=== PATIENT | female | born 1950 | race African-American/Black ===

== ENCOUNTER → 2016-12-20 | Outpatient (CLI) | payer OTHER ==
--- NOTE | ~2016-12-20 | CR181 ---
[facility] A Service of [facility] & [facility] / [facility] RADIOLOGY TEXT RESULTS PATIENT: GEOFF LINDA LOCATION: [facility] : 52 UNIT #: [id number] AGE: [address]: Mary Mas APRN SEX: F ORDER DR: [id number] [facility] [address] [place], [place] [address] [id number] O MR#: [id number] Acc #: [id number] NAME: GEOFF LINDA : 1950 SEX: F STUDY DATE/TIME: 12/20/2016 16:35 UNIT: [facility] ROOM: STUDY DESCRIPTION: CR Lumbar Spine 2 or 3 Views Attending Physician: Mary Mas Aprn Referring Physician: Mary Mas Aprn Ordering Physician: Mary Mas Aprn Primary Care Physician: Bernie Aranda M.D. MEDICAL IMAGING REPORT This report is preliminary unless electronic signature is present EXAM 3 views lumbar spine, 12/20/2016. HISTORY Lower back pain for 3 weeks. No documented injury. COMPARISON Lumbar spine radiographs 05/06/2009. FINDINGS No acute lumbar spine fracture or subluxation is seen. Advanced facet arthropathy is present, greatest at L3-4, L4-5 and L5-S1. Disc space height appears preserved. No osteolytic or osteoblastic abnormalities are seen. There is degenerative sclerotic-appearing change along the inferior margins of each sacroiliac joint, right greater than left, with mild right SI joint spurring inferiorly. Cholecystectomy. IMPRESSION 1. No acute lumbar spine findings. 2. Advanced lower lumbar facet arthropathy greatest at L3-4, L4-5 and L5-S1. 3. Preservation of disc height at each lumbar level. 4. Degenerative changes of the sacroiliac joints, right greater than left. Dictated by... Steff Avendano M.D. THIS IS AN ELECTRONICALLY VERIFIED REPORT Steff Avendano M.D. at 12/22/2016 2:22 PM FABRICE/dainela TD: 12/21/2016 14:13 [facility] A Service of [facility] & [facility] / [facility] RADIOLOGY TEXT RESULTS PATIENT: GEOFF LINDA LOCATION: [facility] #: [id number] : 52 UNIT #: [id number] AGE: [address]: Mary Mas APRN SEX: F ORDER DR: MANOJ #: [id number] MEDICAL IMAGING REPORT Page 1 of 1 COPY
--- NOTE | ~2016-12-20 | CR170 ---
[facility] A Service of [facility] & [facility] RADIOLOGY TEXT RESULTS PATIENT: GEOFF LINDA LOCATION: [facility] : 52 UNIT #: [id number] AGE: [address]: Mary Mas APRN SEX: F ORDER DR: [id number] [facility] [address]. [place], [place] [address] [id number] O MR#: [id number] Acc #: [id number] NAME: GEOFF LINDA : 1950 SEX: F STUDY DATE/TIME: 12/20/2016 16:35 UNIT: [facility] ROOM: STUDY DESCRIPTION: CR Knee 2 Views Rt Attending Physician: Mary Mas Aprn Referring Physician: Mary Mas Aprn Ordering Physician: Mary Mas Aprn Primary Care Physician: Bernie Aranda M.D. MEDICAL IMAGING REPORT This report is preliminary unless electronic signature is present EXAM 2 views right knee, 12/20/2016 HISTORY 66-year-old female with right knee pain for 3 weeks. No documented injury. COMPARISON Right knee radiographs, 03/09/2015 FINDINGS No acute fracture, dislocation or effusion. Moderate medial compartment and patellofemoral compartment joint space narrowing. Tricompartment osteophyte formation with tibial spine spurring. No osteolytic or osteoblastic abnormalities. IMPRESSION 1. Moderate osteoarthritic type changes of the right knee, greatest in the patellofemoral and medial compartments. 2. No acute findings. No significant change compared to 03/09/2015. Dictated by... Steff Avendano M.D. THIS IS AN ELECTRONICALLY VERIFIED REPORT Steff Avendano M.D. at 12/22/2016 2:22 PM Carmen TD: 12/21/2016 14:07 JOB #: [id number] MEDICAL IMAGING REPORT Page 1 of 1 COPY
== END | disposition home or self-care (01) ==
LOC: CRAD 16:00
DX: M25.561 Pain in right knee (principal); M54.5 Low back pain; M46.96 Unspecified inflammatory spondylopathy, lumbar region; M47.898 Other spondylosis, sacral and sacrococcygeal region
CPT/HCPCS: 72100; 73560